=== PATIENT | female | born 1960 | race Caucasian/White ===

== ENCOUNTER 2017-01-09 19:18 | Emergency (ER) | payer BC ==
[~2017-01-09] VITALS: Ht 160 cm; Wt 67.5 kg
[2017-01-09 19:29] VITALS: BP 146/83
[2017-01-09] MEDS ORDERED: LIDOCAINE 2% (XYLOCAINE) 20 ML VIAL INJ ONE (20:05)
[2017-01-09] MEDS ORDERED: LIDOCAINE 1% (XYLOCAINE) 20 ML VIAL INJ ONE (20:10)
[2017-01-09] MEDS ORDERED: CEPHALEXIN 500 MG (KEFLEX) CAPSULE PO ONE (20:20)
[2017-01-09] MEDS ORDERED: ED- TRAMADOL 50 MG (ULTRAM) 6 TABLETS/BTL PO ONE (20:20)
--- NOTE | 2017-01-09 20:40 | NUR ---
WOUND CARE AND DRSNG BY . PATIENT TOLERATED WELL.
== END 2017-01-09 20:54 | disposition home or self-care (01) ==
LOC: ED 19:20
DX: S61.245A Puncture wound with foreign body of left ring finger without damage to nail, initial encounter (principal); W45.8XXA Other foreign body or object entering through skin, initial encounter; Y93.89 Activity, other specified; Y92.828 Other wilderness area as the place of occurrence of the external cause
CPT/HCPCS: 99282; 99283